=== PATIENT | male | born 1995 | race Hispanic/Latino ===

== ENCOUNTER 2020-11-01 14:04 | Emergency (ER) | payer OTHER, SELFPAY ==
--- NOTE | ~2020-11-01 | XR_ITS ---
EXAMINATION: XR shoulder LT min 2V DATE: 11/01/2020 15:04 INDICATION: Left shoulder pain. TECHNIQUE: 3 views of left shoulder were obtained. COMPARISON: None. FINDINGS: There is anterior dislocation of humeral head with respect to glenoid. No fracture. Joint s paces are normal. IMPRESSION: 1. Anterior left shoulder dislocation. Reviewed, dictated and finalized at location A. ND EQUIPMENT MECHANIC
--- NOTE | ~2020-11-01 | XR_ITS ---
EXAMINATION: XR shoulder LT min 2V DATE: 11/01/2020 15:04 INDICATION: Left shoulder dislocation status post reduction. TECHNIQUE: 2 views of left shoulder were obtained. COMPARISON: Left shoulder radiographs at 2:45 PM FINDINGS: Bone alignment is normal. No fracture. Joint spaces are well maintained. IMPRESSION: 1. Normal left shoulder. Reviewed, dictated and finalized at location A. ET TEST FIRE WORKER IMPRESSION: 1. Normal left shoulder.
[2020-11-01 14:11] VITALS: BP 141/79; PULSE 65; RESP 18; TEMP 36; O2SAT 100
--- NOTE | 2020-11-01 14:23 | PC.NURSE ---
patient here after fall with possible left shoulder dislocation. resting on stretcher. xray ordered. waiting for further orders from provider. ice bag to left shoulder.
--- NOTE | 2020-11-01 14:30 | PC.NURSE ---
patient on stretcher. shirt has been removed. SL in right AC. ice bag on left shoulder. BP and O2 monitors on. explained current treatment plan to patient. friend in room. waiting for provider to see patient. call light in reach.
[2020-11-01 14:32] VITALS: O2SAT 99
--- NOTE | 2020-11-01 14:35 | ED.UPPEXIN ---
HPI - Extremity Injury (Upper) General Chief Complaint: Extremity Injury, Upper Stated Complaint: left shoulder injury Time Seen by Provider: 11/01/20 14:22 Source: patient Mode of arrival: ambulatory Limitations: no limitations History of Present Illness HPI narrative: This patient is a 25 year old right hand dominant male who presents for evaluation of left shoulder injury. He states he twisted his left arm trying to keep himself from fall off a box. He has severe left shoulder pain and his is unable to move it. He thinks he may have dislocated it. He denies hitting his head or falling to the ground. Related Data Allergies Allergy/AdvReac Type Severity Reaction Status Date / Time No Known Allergies Allergy Unverified 11/01/20 14:16 Review of Systems Review of Systems: All systems reviewed & are unremarkable except as noted in HPI and below PMFSH Past Medical History Medical History (Updated 11/01/20 @ 16:11 by Sophie Nino MD) Asthma Social History Social History (Updated 11/01/20 @ 14:39 by Sophie Nino MD) Smoking status: Never smoker Exam Const: General: alert Orientation/consciousness: patient oriented x3 HENMT: Head: normocephalic and atraumatic Face and sinus: face symmetric Eyes: EOM: EOMs intact bilaterally Neck: Neck: normal visual inspection and no lymphadenopathy Resp: Effort & Inspection: normal respiratory effort and no retractions Auscultation: clear to auscultation bilaterally Cardio: Rate: regular rate Rhythm: regular rhythm Skin: General skin exam: normal color Rashes: no rashes Neuro: General: patient oriented x3 and moves all extremities Extrem: Other: left shoulder held in extension, pain with any movement. no swelling, strong radial pulses present Psych: Mental Status: mental status grossly normal Affect: normal affect Course Reevaluation(s) Reevaluation #1: I discussed with patient discharge plan. He was placed in a shoulder immobilizer. HE reports his pain has improved. Date: 11/01/20 Time: 16:08 Vital Signs Vital signs: Vital Signs Temperature 96.8 F L 11/01/20 14:11 Pulse Rate 65 11/01/20 14:11 Respiratory Rate 18 11/01/20 14:11 Blood Pressure 141/79 H 11/01/20 14:11 Pulse Oximetry 100 11/01/20 14:11 Temperature 96.8 F L 11/01/20 14:11 Pulse Rate 65 11/01/20 14:11 Respiratory Rate 18 11/01/20 14:11 Blood Pressure 135/79 11/01/20 15:01 Pulse Oximetry 100 11/01/20 15:01 Procedures Orthopedic Joint Reduction Joint #1: Orthopedic Joint Reduction Date: 11/01/20 Orthopedic Joint Reduction Time: 14:50 Time Out Performed: Yes Side: left Joint Reduction Location: shoulder Pre-Procedure Neuro Vascular Exam: normal Local Anesthesia: none Shoulder Technique Used (if applicable): external rotation Technique used: direct manipulation Post-reduction neuro exam: intact Post-reduction vascular: intact Post Reduction X-Ray Obtained: Yes Post Reduction X-Ray Results: reduced Splint Applied: Yes Patient Tolerated Procedure: well MDM - Extremity Injury (Upper) Imaging Data Radiologist's impression: ITS Impressions Shoulder X-Ray 11/01/20 15:05 IMPRESSION: 1. Anterior left shoulder dislocation. Shoulder X-Ray 11/01/20 15:06 IMPRESSION: 1. Normal left shoulder. Discharge Plan Discharge Clinical Impression: Anterior dislocation of left shoulder Qualifiers: Encounter type: initial encounter Qualified Code(s): S43.015A - Anterior dislocation of left humerus, initial encounter Patient Disposition: Home, Self-Care Condition: Stable Instructions: Shoulder Dislocation (ED), Shoulder Immobilizer (ED) Additional Instructions: Please wear the shoulder immobilizer as instructed. Call the orthopedic surgeon to [facility] for evaluatoin. Prescriptions: New ibuprofen 600 mg table
[2020-11-01] MEDS: HYDROmorphone HCL INJ (*CRX) 1 MG/ML SYR IV PUSH (14:45)
[2020-11-01 14:46] VITALS: BP 137/101; O2SAT 86
[2020-11-01] MEDS: ONDANSETRON INJ 4 MG/2 ML VIAL IV PUSH (14:46)
--- NOTE | 2020-11-01 14:46 | PC.NURSE ---
patient medicated as ordered. radiology here for portable xray.
[2020-11-01 14:47] VITALS: O2SAT 97
[2020-11-01 15:00] VITALS: O2SAT 100
[2020-11-01 15:01] VITALS: BP 135/79; O2SAT 100
--- NOTE | 2020-11-01 15:02 | PC.NURSE ---
MD put left shoulder back in place. will put shoulder immobilizer on. repeat xray shows good positioning. patient sitting up. drinking water. talking to friend. states pain is controlled.
[2020-11-01] MEDS: KETOROLAC 30 MG/ML VIAL (*BKC) IV PUSH (15:30)
--- NOTE | 2020-11-01 15:54 | PC.NURSE ---
patient out of bed on his own. advised to either stay in chair or bed. sitting in chair in room. friend in room. updated on expected wait time.
== END 2020-11-01 16:21 | disposition home or self-care (01) ==
PROVIDERS: Emergency Provider General Practice
DX: S43.015A Anterior dislocation of left humerus, initial encounter (principal); J45.909 Unspecified asthma, uncomplicated; X50.9XXA Other and unspecified overexertion or strenuous movements or postures, initial encounter
CPT/HCPCS: 23650; 73030; 96374; 96375; 99285; J1170; J1885; J2405